=== PATIENT | male | born 1985 | race African-American/Black ===

== ENCOUNTER 2016-05-17 06:38 | Emergency (ER) | payer OTHER ==
[2016-05-17 06:47] LABS: BILIRUBIN 1+ mg/dL (NEGATIVE); BLOOD TRACE-INTACT Ery/uL (NEGATIVE); CLARITY CLEAR (CLEAR); COLOR YELLOW (YELLOW); GLUCOSE (U) NORMAL (NORMAL); KETONE (U) TRACE mg/dL (NEGATIVE); LEUKOCYTES 1+ Leu/uL (NEGATIVE); NITRITE NEGATIVE (NEGATIVE); PROTEIN TRACE (LOW) mg/dL (NEGATIVE); SPECIFIC GRAVITY >=1.030 (1.001-1.030); pH 6.5 (5.0-9.0)
[2016-05-17 06:53] LABS: URINARY WBC TNTC
[2016-05-17 06:54] LABS: BACTERIA TRACE; MUCOUS TRACE
== END 2016-05-17 06:43 | disposition home or self-care (01) ==
LOC: FER 06:38
PROVIDERS: Emergency Medicine Emergency Medical Services
DX: N34.1 Nonspecific urethritis (principal); F17.210 Nicotine dependence, cigarettes, uncomplicated; Z20.2 Contact with and (suspected) exposure to infections with a predominantly sexual mode of transmission; Z86.19 Personal history of other infectious and parasitic diseases
CPT/HCPCS: 81001; 87088

== ENCOUNTER 2016-11-05 10:53 | Emergency (ER) | payer OTHER ==
[2016-11-05 11:53] LABS: BILIRUBIN NEGATIVE (NEGATIVE); BLOOD TRACE-INTACT Ery/uL (NEGATIVE); CLARITY CLEAR (CLEAR); COLOR YELLOW (YELLOW); GLUCOSE (U) NORMAL (NORMAL); KETONE (U) NEGATIVE (NEGATIVE); LEUKOCYTES 1+ Leu/uL (NEGATIVE); NITRITE NEGATIVE (NEGATIVE); PROTEIN NEGATIVE (NEGATIVE); SPECIFIC GRAVITY 1.015 (1.001-1.030); UROBILINOGEN 0.2 mg/dL (0.2-1.0)
[2016-11-05 12:03] LABS: URINARY WBC TNTC
[2016-11-05 12:05] LABS: BACTERIA 1+; SQUAMOUS EPITHELIAL CELLS RARE
== END 2016-11-05 12:00 | disposition home or self-care (01) ==
LOC: FER 10:53
PROVIDERS: Nurse Practitioner
DX: M54.40 Lumbago with sciatica, unspecified side (principal); Z20.2 Contact with and (suspected) exposure to infections with a predominantly sexual mode of transmission; F17.210 Nicotine dependence, cigarettes, uncomplicated
CPT/HCPCS: 81001

== ENCOUNTER 2020-08-04 15:32 | Emergency (ER) | payer OTHER ==
[~2020-08-04 15:32] MED LIST: AUGMENTIN 875-1 EACH PO; CLEOCIN300 MG PO; FLEXERIL10 MG PO; FLOMAX 0.4 MG0.4 MG PO; IBUPROFEN800 MG PO; ILOTYCIN1 GM OS; MEDROL 4MG DOSEP4 MG PO; NORCO 5-325 TA1 EACH PO; PERCOCET 5-3251 EACH PO; VIBRAMYCIN100 MG PO; VOLTAREN **OUT50 MG PO; ZOFRAN4 MG PO
[2020-08-04] MEDS ORDERED: IBU600 MG PO (17:32)
[2020-08-04] MEDS ORDERED: CYCLOBENZAPRINE10 MG PO (17:32)
== END 2020-08-04 17:41 | disposition home or self-care (01) ==
LOC: FER 15:32
DX: S16.1XXA Strain of muscle, fascia and tendon at neck level, initial encounter (principal); L72.3 Sebaceous cyst; X58.XXXA Exposure to other specified factors, initial encounter
CPT/HCPCS: 99283

== ENCOUNTER 2020-08-08 00:57 | Emergency (ER) | payer OTHER ==
[~2020-08-08 00:57] MED LIST changes: +CYCLOBENZAPRINE10 MG PO; +IBU600 MG PO
[2020-08-08] MEDS ORDERED: NAPROSYN375 MG PO (01:56)
== END 2020-08-08 02:12 | disposition home or self-care (01) ==
LOC: FER 00:57
DX: S46.911A Strain of unspecified muscle, fascia and tendon at shoulder and upper arm level, right arm, initial encounter (principal); X58.XXXA Exposure to other specified factors, initial encounter
CPT/HCPCS: 73030; J1885

== ENCOUNTER 2020-10-17 14:32 | Emergency (ER) | payer OTHER ==
[~2020-10-17 14:32] MED LIST changes: +NAPROSYN375 MG PO
== END 2020-10-17 17:21 | disposition home or self-care (01) ==
LOC: FER 14:32
DX: B34.9 Viral infection, unspecified (principal); F17.200 Nicotine dependence, unspecified, uncomplicated; Z20.822 Contact with and (suspected) exposure to COVID-19
CPT/HCPCS: 99283; U0002

== ENCOUNTER 2020-10-23 18:45 | Emergency (ER) | payer OTHER | END 2020-10-23 20:14 | disposition home or self-care (01) | LOC: FER 18:45 | DX: B34.9 Viral infection, unspecified (principal); F17.210 Nicotine dependence, cigarettes, uncomplicated; Z20.822 Contact with and (suspected) exposure to COVID-19 | CPT/HCPCS: 71045; U0002 ==